=== PATIENT | female | born 1955 | race Caucasian/White ===

== ENCOUNTER 2017-10-13 11:00 | Inpatient (IN) | payer OTHER ==
[~2017-10-13] VITALS: Ht 162.6 cm; Wt 68.0 kg
[2017-10-13] MEDS ORDERED: LOSARTAN POTAS100 MG PO (12:11)
[2017-10-13] MEDS ORDERED: ORENCIA125 MG/1 M (12:11)
[2017-10-13] MEDS ORDERED: ZOCOR40 MG PO (12:12)
[2017-10-13] MEDS ORDERED: LIRICA PO (12:12)
[2017-10-13] MEDS ORDERED: GABAPENTIN800 MG PO (12:13)
[2017-10-13] MEDS ORDERED: [UNRECOGNIZED DRUG - OTHER] PO (12:13)
[2017-10-13] MEDS ORDERED: ALBUTEROL0.63 MG/3 IH (12:14)
[2017-10-13] MEDS ORDERED: SINGULAIR10 MG PO (12:14)
[2017-10-21] MEDS ORDERED: DOCUSATE SODIU100 MG PO (12:25)
[2017-10-21] MEDS ORDERED: PERCOCET 5-3251 EACH PO (12:26)
[2017-10-21] MEDS ORDERED: CLONAZEPAM1 MG PO (12:26)
== END 2017-10-22 17:35 | DRG 472 ==
LOC: O/R 10-21 06:56 → PED 10-21 06:56 → SURH 10-21 07:00 → EDBD 10-21 11:00 → PED 10-21 13:56
PROVIDERS: Orthopaedic Surgery Orthopaedic Surgery of the Spine
PROC: 0RT30ZZ Resection of Cervical Vertebral Disc, Open Approach (ICD-10-PCS; 2017-10-21)
PROC: 07DS3ZZ Extraction of Vertebral Bone Marrow, Percutaneous Approach (ICD-10-PCS; 2017-10-21)
PROC: 0RG20A0 Fusion of 2 or more Cervical Vertebral Joints with Interbody Fusion Device, Anterior Approach, Anterior Column, Open Approach (ICD-10-PCS; principal; 2017-10-21 07:00)
DX: M47.12 Other spondylosis with myelopathy, cervical region (principal); M50.023 Cervical disc disorder at C6-C7 level with myelopathy; I10 Essential (primary) hypertension